=== PATIENT | male | born 1945 | race Caucasian/White ===

== ENCOUNTER 2017-08-21 09:45 | Emergency (ER) | payer OTHER, MEDICARE ==
[2017-08-21 09:55] VITALS: BP 128/87; PULSE 51; TEMP 98.5; BMI 28.8
[2017-08-21] MEDS ORDERED: LIDO 2%/EPI 1:200000 PRESRVFRE (20 ML SDVIAL) ONE (09:59)
--- NOTE | 2017-08-21 10:07 | PDOC ---
History of Present Illness - General Chief Complaint: Injury Stated Complaint: HEAD INJURY Time Seen by Provider: 08/21/17 09:51 History Source: Patient Exam Limitations: No Limitations - History of Present Illness Initial Comments: 71 yo M hx gout presents with R forehead lac s/p fall from bed. He states that he woke out of a dream and was diving out of the bed. He hit his head on the floor, no LOC. Sustained a laceration to the R forehead. Denies weakness, numbness. He contacted Dr. Herrera prior to arrival. Does not take any blood thinners. Past History - Past Medical History Allergies/Adverse Reactions: Allergies Allergy/AdvReac Type Severity Reaction Status Date / Time No Known Allergies Allergy Verified 08/21/17 09:48 Home Medications: Ambulatory Orders Allopurinol [Zyloprim -] 100 mg PO DAILY 08/21/17 Tadalafil [Cialis] 5 mg PO ASDIR 08/21/17 COPD: No Other medical history: GOUT - Surgical History Abdominal Surgery: Yes (HERNIA REPAIR) - Suicide/Smoking/Psychosocial Hx Smoking History: Never smoked Have you smoked in the past 12 months: No Information on smoking cessation initiated: No Hx Alcohol Use: ("glass of wine 2 times a week") Review of Systems - Review of Systems Able to Perform ROS?: Yes Comments:: GENERAL/CONSTITUTIONAL: No fever or chills. No weakness. HEAD, EYES, EARS, NOSE AND THROAT: No change in vision. No ear pain or discharge. No sore throat. CARDIOVASCULAR: No chest pain or shortness of breath. RESPIRATORY: No cough, wheezing, or hemoptysis. GASTROINTESTINAL: No nausea, vomiting, diarrhea or constipation. GENITOURINARY: No dysuria, frequency, or change in urination. MUSCULOSKELETAL: No joint or muscle swelling or pain. No neck or back pain. SKIN: No rash. +Forehead laceration. NEUROLOGIC: No headache, vertigo, loss of consciousness, or change in strength/ sensation. ENDOCRINE: No increased thirst. No abnormal weight change. HEMATOLOGIC/LYMPHATIC: No anemia, easy bleeding, or history of blood clots. ALLERGIC/IMMUNOLOGIC: No hives or skin allergy. *Physical Exam - Vital Signs Last Vital Signs Temp Pulse Resp BP Pulse Ox 98.5 F 51 L 18 128/87 100 08/21/17 09:45 08/21/17 09:45 06/12/18 09:45 08/21/17 09:45 08/21/17 09:45 - Physical Exam Comments: GENERAL: Awake, alert, and fully oriented, in no acute distress HEAD: 3cm laceration to the R forehead at the hairline. No active bleeding. EYES: PERRLA, EOMI, sclera anicteric, conjunctiva clear ENT: Auricles normal inspection, hearing grossly normal, nares patent, oropharynx clear without exudates. Moist mucosa NECK: Normal ROM, supple, no lymphadenopathy, JVD, or masses LUNGS: Breath sounds equal, clear to auscultation bilaterally. No wheezes, and no crackles HEART: Regular rate and rhythm, normal S1 and S2, no murmurs, rubs or gallops ABDOMEN: Soft, nontender, normoactive bowel sounds. No guarding, no rebound. No masses EXTREMITIES: Normal range of motion, no edema. No clubbing or cyanosis. No cords, erythema, or tenderness NEUROLOGICAL: Cranial nerves II through XII grossly intact. Normal speech, normal gait SKIN: Warm, Dry, normal turgor, no rashes or lesions noted. SPINE: No midline tenderness. Medical Decision Making - Medical Decision Making 08/21/17 10:07 Dr. Herrera at bedside to repair laceration. Will obtain CTH after, and DC home if normal. 08/21/17 10:[address] Herrera. CTH reviewed, no acute findings. Stable for DC home. *DC/Admit/Observation/Transfer Diagnosis at time of Disposition: Laceration of head Qualifiers: Encounter type: initial encounter - Discharge Dispostion Disposition: HOME Condition at time of disposition: Stable Decision to Admit order: No - Referrals Referrals: Hebert Herrera MD [Staff Physician] - - Patient Instructions Printed Discharge Instructions: DI for Laceration Repair, DI for Closed Head Injury Additional Instructions: Follow up as per Dr. Herrera's instructions. Return to the ER for any fever, redness, swelling, or drainage of pus, as these are signs of infection. - Post Discharge Activity
--- NOTE | 2017-08-21 12:02 | OP ---
DATE OF OPERATION: 08/21/2017 TITLE OF PROCEDURE: A 2-cm complex forehead laceration washout and repair, with additional 3-cm complex scalp laceration washout and repair. ATTENDING SURGEON: Malka Gustafson MD REFERRING PHYSICIAN: Patient is seen at the request of referring physician Dr. Proctor. HISTORY: This is a 71-year-old male who suffered forehead laceration with a fall from the bed this morning, brought into the [facility] Emergency Room for evaluation and treatment. PAST MEDICAL AND SURGICAL HISTORY: Noncontributory. REVIEW OF SYSTEMS: Negative for any bleeding, coagulopathy, recent fevers or infections, change in mental status, chest pain, shortness of breath. PHYSICAL EXAMINATION: Head/Neck: There is curvilinear laceration involving skin and frontalis muscle to the superior forehead for 2 cm and then continuing laceration 3 cm curvilinear into the hair-bearing scalp involving skin and galea. The remainder of head and neck exam is otherwise atraumatic. Pupils are equally round, reactive to light. Extraocular muscles intact. Neck: Supple and nontender. Heart: Regular rate and rhythm. Lungs: Clear to auscultation. Abdomen: Soft, nontender. Extremities: Warm and well perfused. It is the plan for the emergency room physician to obtain a head CT. I have discussed with the patient risks, benefits, and alternatives to washout and repair of the forehead and scalp lacerations. He understands and agrees to proceed. PROCEDURE: Margins of wound were injected with a total of 5 mL of 2% lidocaine with 1:100,000 epinephrine, after which the wound is copiously irrigated with normal saline, is grossly debrided of clot. The frontalis muscle is approximated with a series of interrupted buried 4-0 Vicryl suture. Skin after debrided for straight-line closure on the skin is closed with combination of running and interrupted 5-0 nylon suture. The wound is dressed with Bacitracin. Wound care instructions are given. The patient is to follow up with Dr. Gustafson in 1 week for wound care and suture removal. MALKA GUSTAFSON M.D. [id number] cc: Rick Proctor DDS
== END 2017-08-21 10:55 | disposition home or self-care (01) ==
LOC: FER 09:45
PROC: 0HQ0XZZ Repair Scalp Skin, External Approach (ICD-10-PCS; principal; 2017-08-21)
PROC: 0HQ1XZZ Repair Face Skin, External Approach (ICD-10-PCS; 2017-08-21)
DX: S01.01XA Laceration without foreign body of scalp, initial encounter (principal); S01.81XA Laceration without foreign body of other part of head, initial encounter
CPT/HCPCS: 13120; 13131; 70450-TC; 99282-25

== ENCOUNTER 2020-01-28 08:08 | Day surgery (SDC) | payer OTHER, MEDICARE ==
[2020-01-22 14:22] VITALS: BMI 30.5
[2020-01-28] MEDS: PHENYLEPHRINE 2.5% OPHTH SOLN 15 ML BOTTLE ONE ×3 (08:45→08:55)
[2020-01-28] MEDS: CIPROFLOXACIN 0.3% EYE DROPS 5 ML BOTTLE ONE ×3 (08:45→08:55)
[2020-01-28] MEDS: TROPICAMIDE 1% OPHTH SOLN 15 ML BOTTLE ONE ×3 (08:45→08:55)
[2020-01-28] MEDS: CYCLOPENTOLATE 2% OPHTH SOLN 2 ML BOTTLE ONE ×3 (08:45→08:55)
[2020-01-28] MEDS ORDERED: LIDOCAINE 1% P/F 10 MG/ML VIAL ONE (10:13)
[2020-01-28] MEDS ORDERED: TETRACAINE 0.5% OPHTH SOLN 2 ML BOTTLE ONE (10:13)
[2020-01-28] MEDS ORDERED: BSS (NA/CA/MG/K) BALANCED SALT SOLUTION OPHTH SOLN 15 ML BOTTLE ONE (10:13)
[2020-01-28] MEDS ORDERED: CARBACHOL 0.01% INTRA-OCULAR 1.5 ML VIAL ONE (10:14)
[2020-01-28] MEDS ORDERED: NEO/POLYMYX B SULF/DEXAMETH OPHTHALMIC 5ML BOTTLE ONE (10:14)
[2020-01-28] MEDS ORDERED: MIDAZOLAM HCL 2 MG/2 ML SINGLE DOSE VIAL ONE ×3 (10:30→10:46)
[2020-01-28] MEDS ORDERED: PROPOFOL 20 ML ONE (11:01)
[2020-01-28] MEDS ORDERED: ACETYLCHOLINE 1:100 INTRA-OCUL 20 MG/2 ML KIT ONE (11:05)
[2020-01-28 12:38] VITALS: PULSE 48; TEMP 97.5
[2020-01-28 12:52] VITALS: BP 135/91
== END 2020-01-28 12:50 | disposition home or self-care (01) ==
LOC: FASU 08:08
PROVIDERS: ATTEND Ophthalmology
PROC: 08RK3JZ Replacement of Left Lens with Synthetic Substitute, Percutaneous Approach (ICD-10-PCS; principal; 2020-01-28 10:38)
DX: H26.8 Other specified cataract (principal)
CPT/HCPCS: 94760